=== PATIENT | female | born 1960 | race Caucasian/White ===

== ENCOUNTER → 2017-01-12 | Outpatient (CLI) | payer OTHER ==
[~2017-01-12] MED LIST: ADVIL100 M2 PO; ASPIRIN EC81 M1 PO; ATIVAN0.5 MG PO; CLARITIN10 MG PO; DESYREL50 MG PO; FISH OIL + VIT1 EACH PO; MICROGESTIN FE1 EACH PO; THERA-M CAPLET1 EACH PO
== END ==
LOC: RAD 09:28
DX: Z12.31 Encounter for screening mammogram for malignant neoplasm of breast (principal); M79.642 Pain in left hand

== ENCOUNTER → 2018-06-18 | Outpatient (CLI) | payer OTHER | LOC: RAD 13:16 | DX: Z12.31 Encounter for screening mammogram for malignant neoplasm of breast (principal) ==

== ENCOUNTER → 2018-10-18 | Outpatient (CLI) | payer OTHER | LOC: MRI 08:16 | DX: G43.009 Migraine without aura, not intractable, without status migrainosus (principal); Z88.2 Allergy status to sulfonamides; Z88.8 Allergy status to other drugs, medicaments and biological substances ==

== ENCOUNTER → 2019-12-10 | Outpatient (CLI) | payer OTHER | LOC: BC 08:53 | PROVIDERS: ATTEND Family Medicine | DX: Z12.31 Encounter for screening mammogram for malignant neoplasm of breast (principal) ==